=== PATIENT | male | born 1995 ===

== ENCOUNTER 2017-09-20 17:01 | Emergency (ER) | payer OTHER ==
[2017-09-20 17:26] VITALS: BP 118/42; PULSE 72; RESP 18; TEMP 98.7; O2SAT 98
--- NOTE | 2017-09-20 17:59 | ED PDOC ---
Arrival/HPI - General Chief Complaint: ENT Problem Time Seen by Provider: 09/20/17 17:55 Historian: Patient - History of Present Illness Narrative History of Present Illness (Text): 09/20/17 17:56 pt p/w + 3-4 days onset of left ear pain, decreasing hearing; [place]; pt states he has been using OTC ear wax removal with minimum improvement; pt also noted mild sore throat; pt denied fever/chills /sweats, no chest pain/shortness of breath/palpitations, no abd pain, no n/v, no numbness/tingling, no dizziness/LOC, no neck pain, no headache, no ear discharge noted; pt denied Fall/trauma/sick contact, no travel; incidentally, pt states he has been having intermittent hoarse coughing x 2 weeks/with nasal congestion/post nasal drips; pt is here for further eval; pt's without other complaints PCP: NONE Time/Duration: < week (3-4 days) Symptom Onset: Sudden Symptom Course: Worsening Severity Level: Severe Activities at Onset: Rest Context: Home Past Medical History - Provider Review Nursing Documentation Reviewed: Yes - Travel History Have you recently traveled outside [place] w/in the past 3 mons?: No - Past History Past History: Non-Contributing - Infectious Disease Hx of Infectious Diseases: None - Psychiatric Hx Substance Use: Yes Family/Social History - Physician Review Nursing Documentation Reviewed: Yes Family/Social History: No Known Family HX Smoking Status: Never Smoked Hx Alcohol Use: No Frequency of alcohol use: Socially Hx Substance Use: Yes Substance used: Marijuana Hx Substance Use Treatment: No Allergies/Home Meds Allergies/Adverse Reactions: Allergies No Known Allergies Allergy (Verified 09/20/17 17:21) Review of Systems - Review of Systems Constitutional: Normal Eyes: Normal ENT: Hearing Changes, Other (left ear pain) Respiratory: SOB, Cough. absent: Sputum, Wheezing Cardiovascular: Normal Gastrointestinal: Normal. absent: Nausea, Vomiting Genitourinary Male: Normal Musculoskeletal: Normal Skin: Normal Neurological: Normal Endocrine: Normal Hemo/Lymphatic: Normal Psychiatric: Normal Physical Exam - Physical Exam Narrative Physical Exam (Text): 09/20/17 17:57 General: alert/awake, GCS = 15, oriented x 3, resting in bed, mildly uncomfortable, cooperative, interactive; NAD Head: NC/AT EYE: PERRLA, EOMI, sclera anicteric, no nystagmus, no photophobia; visual field intact b/l Facial: WNL ENT: difficult to visualize left TM, + cerumen with mild surrounding otic canal erythema, + tenderness noted on otic exam; right TM WNL, no bulging/retractions/ air-fluid level noted; no FB/masses noted; no mastoid tenderness/bogginess noted Oral: uvula/tongue are midline, no exudate/lesions, no drooling/stridor, no dysphonia; intact dentitions; moist oral mucosa NECK: intact ROM, no midline tenderness, no nuchal rigidity, no meningeal signs ; no step off Chest: CTA b/l, no w/r/r; no tachypenia, no accessory muscle use noted Cardiac: +S1, +S2, no m/r/r, no tachycardia Abdominal: +BS, soft/nd/nt, well nourished patient; no masses/rebound/guarding/ rigidity; no lombardo's sign, no mcburney's point tenderness Extremities: intact ROM, strength 5/5 grossly intact in all limbs, neurovasc intact b/l; + ambulatory; reflex +2/2; no pitting edema/swelling b/l; no Yissel' s sign b/l BACK: no step off, no midline tenderness, NO crepitus, no gross deformities noted; Intact ROM SKIN: cap refill < 1 sec, no ulcerations, no petechiae, no rashes NEURO: CNII-XII WNL, no facial asymmetries, no slurr speech, oriented x 3 NIH stroke scale ~ 0 Psych: normal insight, normal affect; follows command with ease Vital Signs Reviewed: Yes Vital Signs Temp Pulse Resp BP Pulse Ox 09/20/17 17:21 98.7 F 72 18 118/42 L 98 Temperature: Afebrile Blood Pressure: Normal Pulse: Regular Respiratory Rate: Normal Appearance: Positive for: Well-Appearing, Non-Toxic, Uncomfortable. No: Ill- Appearing, Unkept Pain Distress: None Mental Status: Positive for: Alert and Oriented X 3 - Systems Exam Head: Present: Atraumatic, Normocephalic Medical Decision Making ED Course and Treatment: 09/20/17 17:58 Impression: left ear ache, otitis media i have consider all the differential diagnosis regarding pt's chief medical complaints/clinical findings, including but are not limited to: left ear pain, otitis media A/P: left ear pain, otitis media - supportive care - observe/reevaluation 09/20/17 18:10 pt is doing well pt is not in any distress vital signs are stable pt is made aware of his medical results pt is encouraged NOT TO SMOKE pt is encouraged NOT TO SWIM or placed his head underneath water pt will follow up as directed pt will be discharged home Re-evaluation Time: 17:59 Reassessment Condition: Unchanged Disposition/Present on Arrival - Present on Arrival Any Indicators Present on Arrival: No History of DVT/PE: No History of Uncontrolled Diabetes: No Urinary Catheter: No History of Decub. Ulcer: No History Surgical Site Infection Following: None - Disposition Have Diagnosis and Disposition been Completed?: Yes Diagnosis: Otitis media Disposition: HOME/ ROUTINE Disposition Time: 18:05 Patient Plan: Discharge Patient Problems: Current Active Problems Problem Status Onset Otitis media Acute Condition: STABLE Discharge Instructions (ExitCare): Ear Infections (Otitis Media) Print Language: SAMI Additional Instructions: Make sure to see your doctor in 1-2 days DRINK PLENTY OF FLUIDS DONT SWIM, DONT put your head underneath water until your left ear pain/ infection resolves STOP SMOKING DONT DO DRUGS take your medications as prescribed RETURN TO ED IF worse pain, cant breath, persistent vomiting, high fever >101- 102 for hours, altered behavior, slurr speech, facial changes, focal weakness ( arm/leg or both), unable to urinate, heavy/persistent bleeding, passing out, chest pain, or other medical emergencies Prescriptions: Carbamide Peroxide [Debrox 15 Ml] 5 - 10 drop BID 5 Days #1 bottle Ibuprofen [Motrin] 400 mg PO QID PRN #30 tab PRN Reason: Pain, Mild (1-3) Ofloxacin Otic 0.3% [Floxin 0.3% Otic Soln] 10 drop BID 7 Days #1 bottle Referrals: David Hodge DO [[facility]] - Follow up with primary Jeanna Harrington MD [Staff Provider] - Follow up with primary Forms: [employer] [facility] ([place]ian), WORK NOTE
== END 2017-09-20 18:15 | disposition home or self-care (01) ==
LOC: ED 17:01
DX: H66.92 Otitis media, unspecified, left ear (principal)